=== PATIENT | female | born 1975 | race Caucasian/White ===

== ENCOUNTER → 2017-03-28 14:42 | Outpatient (CLI) | payer BC | END | disposition home or self-care (01) | LOC: D.MAMMO 11:45 | DX: Z12.31 Encounter for screening mammogram for malignant neoplasm of breast (principal) ==

== ENCOUNTER → 2017-05-16 16:32 | Outpatient (CLI) | payer BC | END | disposition home or self-care (01) | LOC: D.MAMMO 14:00 | DX: R92.8 Other abnormal and inconclusive findings on diagnostic imaging of breast (principal) ==

== ENCOUNTER → 2017-07-18 09:35 | Outpatient (CLI) | payer BC | END | disposition home or self-care (01) | LOC: D.US 09:35 | DX: E03.9 Hypothyroidism, unspecified (principal) ==

== ENCOUNTER 2018-05-20 08:00 | Outpatient (CLI) | payer BC | END 2018-05-20 09:00 | disposition home or self-care (01) | LOC: D.MAMMO 08:00 | DX: Z12.31 Encounter for screening mammogram for malignant neoplasm of breast (principal) ==

== ENCOUNTER 2019-01-03 12:53 | Emergency (ER) | payer OTHER, BC ==
[~2019-01-03] VITALS: Ht 175.3 cm; Wt 58.2 kg
[2019-01-03 13:10] VITALS: Ht 175.3 cm; Wt 58.2 kg
[2019-01-03 13:45] LABS: BASOPHILS 0.1 % (0-2); EOSINOPHILS 3.9 % (0-7); HEMATOCRIT 37.7 % (36.0-48.0); HEMOGLOBIN 13.2 g/dL (12-16); IMMATURE GRANULOCYTES 0.3 % (0-5); LYMPHOCYTES 21.3 % (15-50); MCV 91.3 fL (80.0-100.0); MEAN PLATELET VOLUME 10.4 fL (7.4-10.4); MONOCYTES 5.8 % (2-11); NEUTROPHILS 68.6 % (40-80); PLATELET COUNT 294 10x3/uL (130-400); RBC 4.13 10x6/uL (4.00-5.40); RDW 12.5 % (11.5-14.5); WBC 13.7 10x3/uL (4.8-10.8)
[2019-01-03 14:07] LABS: ALBUMIN 3.6 g/dL (3.4-5.0); ALKALINE PHOSPHATASE 57 U/L (46-116); ALT (SGPT) 14 U/L (10-68); BILIRUBIN - TOTAL 0.67 mg/dL (0.2-1.3); CALC OSMOLALITY 280 mosm/kg (275-300); CALCIUM 8.8 mg/dL (8.5-10.1); CARBON DIOXIDE 20.5 mmol/L (21.0-32.0); CHLORIDE - SERUM 106 mmol/L (98-107); CREATININE - SERUM 0.8 mg/dL (0.6-1.3); GLUCOSE 114 mg/dL (74-106); POTASSIUM - SERUM 3.4 mmol/L (3.5-5.1); PROTEIN - SERUM 7.1 g/dL (6.4-8.2); SODIUM 140 mmol/L (136-145); UREA NITROGEN 16 mg/dL (7-18); eGFR NON AFRICAN AMERICAN 83 mL/min (90-120)
[2019-01-03 14:10] LABS: AMYLASE - SERUM 61 U/L (25-115); LIPASE 152 U/L (73-393); TROPONIN-I < 0.017 ng/mL (0.000-0.060)
[2019-01-03 14:34] LABS: APPEARANCE CLOUDY (CLEAR); COLOR YELLOW (YELLOW); SPECIFIC GRAVITY 1.025 (1.005-1.020)
[2019-01-03 14:36] LABS: BILIRUBIN NEGATIVE (NEGATIVE); GLUCOSE NEGATIVE (NEGATIVE); KETONE NEGATIVE (NEGATIVE); NITRITE NEGATIVE (NEGATIVE); PROTEIN TRACE mg/dL (NEGATIVE); UROBILINOGEN NORMAL (NORMAL)
[2019-01-03 14:37] LABS: BACTERIA FEW /hpf (NONE SEEN); EPITHELIAL CELLS 0-5 /hpf (0-5); MUCUS >1+ /lpf (NONE SEEN); WHITE CELLS - URINE 0-5 /hpf (0-5)
[2019-01-03 14:42] LABS: HCG SERUM NEGATIVE (NEGATIVE)
[2019-01-03] MEDS ORDERED: HYDROCODON-ACE1 EAC7 PO (16:30)
[2019-01-03] MEDS ORDERED: FLOMAX0.4 MG PO (16:30)
[2019-01-03 16:34] VITALS: BP 126/68
== END 2019-01-03 16:35 | disposition home or self-care (01) ==
LOC: D.ER 12:53
PROVIDERS: Family Medicine
DX: N13.2 Hydronephrosis with renal and ureteral calculous obstruction (principal)

== ENCOUNTER → 2019-02-18 12:39 | Outpatient (CLI) | payer OTHER, BC ==
[2019-01-03 13:10] VITALS: BMI 18.9
[~2019-02-18 12:39] MED LIST: FLOMAX0.4 MG PO; HYDROCODON-ACE1 EAC7 PO
[2019-02-18 13:23] LABS: THYROID STIMULATING HORMONE 4.84 uIU/mL (0.36-3.74)
[2019-02-18 14:43] LABS: T4 THYROXIN - FREE 0.75 ng/dL (0.76-1.46)
== END | disposition home or self-care (01) ==
LOC: D.LAB 12:39
PROVIDERS: ATTEND Student in an Organized Health Care Education/Training Program
DX: N92.0 Excessive and frequent menstruation with regular cycle (principal); N93.9 Abnormal uterine and vaginal bleeding, unspecified

== ENCOUNTER 2019-06-04 05:00 | Day surgery (SDC) | payer OTHER, BC ==
[2019-06-02 09:56] LABS: BASOPHILS 0.3 % (0-2); EOSINOPHILS 1.9 % (0-7); HEMATOCRIT 39.8 % (36.0-48.0); HEMOGLOBIN 13.3 g/dL (12-16); IMMATURE GRANULOCYTES 0.3 % (0-5); LYMPHOCYTES 19.4 % (15-50); MCHC 33.4 g/dL (31.0-37.0); MCV 95.9 fL (80.0-100.0); MEAN PLATELET VOLUME 9.9 fL (7.4-10.4); NEUTROPHILS 71.1 % (40-80); PLATELET COUNT 308 10x3/uL (130-400); RBC 4.15 10x6/uL (4.00-5.40); RDW 12.8 % (11.5-14.5); WBC 11.5 10x3/uL (4.8-10.8)
[2019-06-02 09:57] LABS: CALC OSMOLALITY 278 mosm/kg (275-300); CALCIUM 8.8 mg/dL (8.5-10.1); CARBON DIOXIDE 25.3 mmol/L (21.0-32.0); CHLORIDE - SERUM 105 mmol/L (98-107); CREATININE - SERUM 0.8 mg/dL (0.6-1.3); GLUCOSE 86 mg/dL (74-106); POTASSIUM - SERUM 3.8 mmol/L (3.5-5.1); SODIUM 140 mmol/L (136-145); UREA NITROGEN 14 mg/dL (7-18); eGFR NON AFRICAN AMERICAN 83 mL/min (90-120)
[2019-06-04] VITALS (17 sets, daily range): BP systolic 86–110; BP diastolic 48–61; Ht 175.3 cm; Wt 58.2 kg
[~2019-06-04] VITALS: Ht 175.3 cm; Wt 58.2 kg
--- NOTE | ~2019-06-04 | OP ---
PATIENT NAME: MARY HAMM MEDICAL RECORD: [id number] :75 LOCATION:[facility] ADMISSION DATE: SURGEON: ANA MCKEON DO DATE OF OPERATION: 06/04/2019 PREOPERATIVE DIAGNOSIS: Abnormal uterine bleeding. POSTOPERATIVE DIAGNOSIS: Abnormal uterine bleeding. PRIMARY SURGEON: Ana Mckeon DO CAFE MANAGER SURGEON: Ousmane John MD ANESTHESIOLOGIST: SANDY Veronica CRNA. PROCEDURE: Laparoscopic supracervical hysterectomy, bilateral salpingectomy. FINDINGS: Normal-appearing uterus, bilateral fallopian tubes, bilateral ovaries with some small simple cysts. SPECIMENS: Uterus, portion of cervix, bilateral fallopian tubes. ESTIMATED BLOOD LOSS: 25 cc. IV FLUIDS: 1100 cc. URINE OUTPUT: 40 cc of clear urine. COMPLICATIONS: None. CONDITION: Stable. PROCEDURE IN DETAIL: The risks, benefits, alternatives and indications of the procedure were discussed with the patient. She voiced understanding of the procedure and signed the consent. She was taken to the OR where general anesthesia was administered and found to be adequate. She was placed in the dorsal lithotomy position. She was prepped and draped in the normal sterile fashion. The abdomen was elevated. Marcaine was placed in the umbilical fold and a 5-mm incision was created in the umbilical fold with a scalpel. A 5-mm port was placed with direct laparoscopic guidance. Pneumoperitoneum was achieved to 15 mmHg. A left lower quadrant port was placed 2 cm superior and 2 cm medial to the left ASIS under direct laparoscopic visualization. A right lower quadrant port was placed in a similar fashion. The cornua of the uterus was grasped with an atraumatic grasper and the Thunderbeat was used to coagulate and cut the mesosalpinx. The fallopian tube was then removed. The ureter was noted to be seen across the external iliac artery and the pelvic brim with peristalsis. The round ligament was subsequently coagulated and cut with the Thunderbeat. The uteroovarian ligament was coagulated and cut with the Thunderbeat. The vesicouterine peritoneum was opened and the bladder was dissected off the lower uterine segment and upper vagina. The uterine vessels were identified along the uterus and the Thunderbeat was used to coagulate and cut the uterine vessels. The entire procedure was repeated on the right side. As an addition, after placement of the ports and pneumoperitoneum achieved, the patient was placed in Trendelenburg position and the bowel was displaced out of the pelvis. After both uterine vessels were coagulated and cut, the cervical OPERATIVE REPORT [id number] MARY HAMM tissue was incised and the uterus was removed at the internal cervical os. At this time, attention was turned to the abdomen. A mini laparotomy incision was created with a scalpel and carried down to the underlying layer of the fascia with the Bovie. The fascia was incised in the midline and extended laterally. The inferior aspect of the fascial incision was grasped with Romero clamps and the rectus muscle was dissected off sharply. Attention was then turned to the superior aspect of the fascial incision and the rectus muscle was dissected off in a similar fashion. The rectus muscle was in the midline down to the level of the peritoneum. The peritoneum was identified and noted to be free of adherent bowel and entered bluntly. The uterus was then removed through the minilaparotomy. The muscle was closed with 2-0 Monocryl in a running fashion with good hemostasis. The fascial incision was closed with 0 Vicryl in a running fashion with good hemostasis. The subcutaneous fat was closed with 2-0 plain in a running fashion with good hemostasis. The skin was closed in a subcuticular fashion with 3-0 Monocryl and Dermabond covering. Prior to closing the abdomen, the cervical cuff was closed with 0 Vicryl interrupted sutures with good hemostasis noted. Pneumoperitoneum was then reestablished and the abdomen was irrigated with warm sterile water and good hemostasis was noted at all pedicles. The patient was taken out of lithotomy position and the pneumoperitoneum was released. All instruments were removed from the abdomen and good hemostasis was noted. The skin incisions were closed with 3-0 Monocryl suture and Dermabond covering. All needle, lap, sponge, and instrument counts were correct times 2. The patient tolerated the procedure well. She was awakened and taken to the recovery room in stable condition. TRANSINT:[id number] Voice Confirmation ID: [id number] DOCUMENT ID: [id number] ANA MCKEON DO CC: [id number] DICTATION DATE: 06/06/19927 INSULATION POWER UNIT TENDER: 06/06/19 1342 [facility] 06/04/19 [id number] [place] [id number]
[~2019-06-04 05:00] MED LIST changes: +SYNTHROID88 MCG PO
[2019-06-04 06:02] LABS: HCG URINE NEGATIVE (NEGATIVE)
--- NOTE | 2019-06-04 09:52 | NUR ---
TO ROOM 1274 VIA BED FROM RR. DROWSY BUT VERBAL RESPONSES APPRO TO QUESTIONS. ALEXIS ON COMMAND. NO O2 IN USE. IV OF LR INFUSING INTO RT HAND- 125CC/HR PER PUMP. ABD WITH 4 LAP INCISIONS -DERMABODD NOTED- NO DRESSING -WNL IN APPEARANDCE. BELL CATH WITH CLOUDY YELLOW URINE -20CC IN CHAMBER. SCD'S ON AND CONNECTED TO PUMP.
--- NOTE | 2019-06-04 10:18 | NUR ---
FAMILY AT BEDSIDE. WATER GIVEN AT THIS TIME.
--- NOTE | 2019-06-04 10:40 | NUR ---
SIPPING ON WATER. TALKING WITH FAMILY MEMBERS. ABD SOFT - UNCHANGED.
--- NOTE | 2019-06-04 10:51 | NUR ---
talking with family- denies wanting any pain medication at this time.
--- NOTE | 2019-06-04 10:54 | NUR ---
DR MCKEON IN UNIT- INFORMED OF URINE OUTPUT AND BP'S. NEW ORDERS RECEIVED.
--- NOTE | 2019-06-04 11:45 | NUR ---
2ND LITER LR HUNG TO COMPLETE BOLUS. WATCHING TV. ABD SOFT- APPEARANCE UNCHANGED. PT STATES WILL TAKE A PAIN PILL NOW. RATES PAIN 7 ON SCALE OF 0-10. STATES PAIN IS AT INCISIONS.
--- NOTE | 2019-06-04 13:03 | NUR ---
PT RESTING WITH EYES CLOSED WHEN ENTERED ROOM. OPENS EYES - STATES THAT PAIN MED HAS HELPED AND RATES PAIN DOWN TO 5 ON SCALE OF 0-10. ATE MASH POTATOS AND ROLL FROM LUNCH TRAY. URINE CLEAR NOW WITH 55CC OUTPUT FOR THIS HOUR.
--- NOTE | 2019-06-04 13:10 | NUR ---
ABD REMAINS SOFT. INCISIONS WNL.
--- NOTE | 2019-06-04 14:06 | NUR ---
GREATER THAN 500CC URINE FOR PAST HOUR- CLEAR PALE YELLOW. BELL CATH REMOVED. PT INSTRUCTED TO CALL NURSE WHEN NEEDS TO GET UP TO VOID.
--- NOTE | 2019-06-04 14:58 | NUR ---
RINGS CALL LIGHT-STATES NEEDS TO GET UP TO BATHROOM. IV CHANGED TO SALINE LOCK. VOIDED 200CC CLEAR URINE. STATES DOES NOT WANT TO WALK IN HALLWAYS AT THIS TIME. STATES PAIN IS ABOUT 5-6 AT INCISION AREA.
--- NOTE | 2019-06-04 15:42 | NUR ---
TORADOL IM GIVEN. UP TO BATHROOM AGAIN. VOIDED 400CC. TOLERATED WELL.
--- NOTE | 2019-06-04 15:45 | NUR ---
PT STATES SHE WOULD LIKE TO GO HOME TONIGHT AND "SLEEP IN MY OWN BED"
--- NOTE | 2019-06-04 15:53 | NUR ---
ambulating in hallway- tolerating well.
--- NOTE | 2019-06-04 16:28 | NUR ---
DENIES WANTING ANY PAIN MEDICATION AT THIS TIME. RATES PAIN 4-5 ON SCALE OF 0-10.
--- NOTE | 2019-06-04 17:07 | NUR ---
up to bathroom- voided 500cc.
--- NOTE | 2019-06-04 17:56 | NUR ---
dr bullard here to see pt. dr bullard in room- discharge orders received.
[2019-06-04] MEDS ORDERED: PERCOCET 5-3251 TAB PO (18:13)
--- NOTE | 2019-06-04 18:19 | NUR ---
STATES WOULD LIKE PAIN MEDICATION BEFORE DISCHARGE. RATES PAIN A 6 ON SCALE OF 0-10. MED GIVEN.
--- NOTE | 2019-06-04 18:20 | NUR ---
DISCHARGE INST VERBAL AND WRITTEN GIVEN. PFW POST OP HYSTERECTOMY INST AND POST OP INST GIVEN. SCRIPT X1 FOR PERCOCET 5/325 GIVEN. PT MED REC GIVEN. SEE ALSO SIGNED INST SHEET. PT HEALTH SUMMARY GIVEN. DENIES QUESTIONS.
--- NOTE | 2019-06-04 18:35 | NUR ---
PT STATES SHE IS READY TO LEAVE. DISCHARGED HOME WITH - TO AUTO VIA W/C.
== END 2019-06-04 18:35 | disposition home or self-care (01) ==
LOC: D.OPS 05:00 → D.PAN 07:00 → D.OPS 07:00 → D.LD 09:59 → D.OPS 18:35
PROVIDERS: ATTEND Student in an Organized Health Care Education/Training Program
DX: N93.9 Abnormal uterine and vaginal bleeding, unspecified (principal); E03.9 Hypothyroidism, unspecified; N80.3 Endometriosis of pelvic peritoneum

== ENCOUNTER 2019-06-08 10:27 | Emergency (ER) | payer OTHER, BC ==
[~2019-06-08] VITALS: Ht 175.3 cm; Wt 58.2 kg
[~2019-06-08 10:27] MED LIST changes: +PERCOCET 5-3251 TAB PO
[2019-06-08 10:30] VITALS: Ht 175.3 cm; Wt 58.2 kg
[2019-06-08 11:49] VITALS: BP 108/70
== END 2019-06-08 11:50 | disposition home or self-care (01) ==
LOC: D.ER 10:27
DX: J02.9 Acute pharyngitis, unspecified (principal); K12.2 Cellulitis and abscess of mouth; E07.9 Disorder of thyroid, unspecified